=== PATIENT | female | born 1970 | race Hispanic/Latino ===

== ENCOUNTER 2019-09-08 01:52 | Emergency (ER) | payer SELFPAY ==
[2019-09-08 03:12] LABS: #Eosinphils 0.1 thou/uL (0.0-0.7); #Lymphocytes 0.7 thou/uL (1.20-3.40); #Monocytes 0.4 thou/uL (0.11-0.59); %Basophils 0.3 % (0.0-1.0); %Eosinophils 0.7 % (0.0-10.0); %Lymphocytes 6.5 % (21.0-51.0); %Monocytes 4.2 % (0.0-10.0); %Neutrophils 88.4 % (42.0-75.0); Hemoglobin 13.1 g/dL (12.0-16.0); Mean Corpuscular HGB CONC 34.5 g/dL (32.0-36.0); Mean Corpuscular Hemoglobin 32.1 pg (27.0-31.0); Mean Platelet Volume 7.9 fL (7.4-10.4); Platelet Count 198 thou/uL (130-400); RBC Distribution Width 11.8 % (11.5-14.5); Red Blood Cell (RBC) Count 4.09 mill/uL (4.20-5.40); White Blood Cell (WBC) Count 10.2 thou/uL (4.8-10.8)
[2019-09-08 03:20] LABS: BHCG - Serum Negative (NEGATIVE); Pregs Control Background? CLEAR/WHITE (CLR/WHITE); Pregs Control Bar Appear? YES (CONTROL BAR)
[2019-09-08] MEDS ORDERED: Lorazepam 2 MG/ML VIAL ONE (03:31)
[2019-09-08 03:47] LABS: ALT (SGPT) 32 U/L (8-55); AST (SGOT) 66 U/L (5-34); Albumin 3.5 g/dL (3.5-5.0); Alkaline Phosphatase 42 U/L (40-110); Anion Gap 12 mmol/L (10-20); BUN (Urea Nitrogen) 17 mg/dL (7.0-18.7); Bilirubin, Total 0.7 mg/dL (0.2-1.2); Calc. Creatinine Clearance 0 mL/min (70-130); Calcium 8.2 mg/dL (7.8-10.44); Carbon Dioxide 21 mmol/L (22-29); Chloride 104 mmol/L (98-107); Estimated GFR-MDRD 82; Globulin 2.5 g/dL (2.4-3.5); Glucose 143 mg/dL (70-105); Lipase 27 U/L (8-78); Potassium 4.3 mmol/L (3.5-5.1); Sodium 133 mmol/L (136-145)
--- NOTE | 2019-09-08 08:00 | CT ---
PRELIMINARY REPORT/[facility]/EMERGENCY AFTER HOURS PROCEDURE: PROCEDURE INFORMATION: Exam: CT Angiography Chest With Contrast Exam date and time: 09/08/2019 2:40 AM Clinical history: 48 years old, female; Abdominal pain; Generalized; Patient HX: F48 with pmhx of anx iety presents to ED with C/O chest pain, back pain and fall d/t dizziness tonight. PT states that she has had back pain and chest pain since yesterday. PT reports laying in bed this evening when she att empted to get up and became dizzy and fell and hit head. Negative loc. PT reports nausea but denies v omiting. PT denies edema, smoking HX, HX of HTN, HX of dm, and family heart HX. 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 PT was give asa and zofran en route. TECHNIQUE: Imaging protocol: Computed tomographic angiography of the chest with intravenous contrast. 3D rendering: MIP reconstructed images were created and reviewed. COMPARISON: No relevant prior studies available. FINDINGS: Pulmonary arteries: Adequate contrast enhancement of the pulmonary arteries. Aorta: No evidence of thoracic aortic dissection. Lungs: No evidence endobronchial lesion. No evidence of focal air space disease/consolidation. Pleural space: No evidence of pneumothorax. Heart: Heart appears within normal limits, no pericardial effusion. No evidence of filling defects in the cardiac chambers. Lymph nodes: Unremarkable. No enlarged lymph nodes. Bones/joints: Musculoskeletal structures appear intact. Soft tissues: Unremarkable. IMPRESSION: 1. No evidence of thoracic aortic dissection. 2. No evidence of pulmonary embolism. 3. No evidence of focal air space disease/consolidation. PROCEDURE INFORMATION: Exam: CT Angiography Abdomen With Contrast Exam date and time: 09/08/2019 2:40 AM Clinical history: 48 years old, female; Abdominal pain; Generalized; Patient HX: F48 with pmhx of anx iety presents to ED with C/O chest pain, back pain and fall d/t dizziness tonight. PT states that she has had back pain and chest pain since yesterday. PT reports laying in bed this evening when she att empted to get up and became dizzy and fell and hit head. Negative loc. PT reports nausea but denies v omiting. PT denies edema, smoking HX, HX of HTN, HX of dm, and family heart HX. 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 PT was give asa and zofran en route. TECHNIQUE: Imaging protocol: Computed tomographic angiography images of the abdomen with intravenous contrast ma terial. 3D rendering: MIP reconstructed images were created and reviewed. COMPARISON: No relevant prior studies available. FINDINGS: VASCULATURE: Aorta: No evidence of abdominal aortic dissection or aneurysm. Celiac trunk and mesenteric arteries: No occlusion or significant stenosis. Renal arteries: No occlusion or significant stenosis. ABDOMEN: Liver: Normal. No mass. Gallbladder and bile ducts: Normal. No calcified stones. No ductal dilation. Pancreas: Normal. No ductal dilation. Spleen: Normal. No splenomegaly. Adrenals: Normal. No mass. Kidneys and ureters: Normal. No hydronephrosis. Stomach and bowel: No evidence of small bowel obstruction. Mild - moderate amount retained stool mate rial throughout nondilated colon. Lymph nodes: Unremarkable. No enlarged lymph nodes. Intraperitoneal space: Unremarkable. No free air. No significant fluid collection. Bones/joints: Unremarkable. No acute fracture. No dislocation. Soft tissues: Unremarkable. IMPRESSION: 1. No evidence of abdominal aortic dissection or aneurysm. 2. Patent mesenteric, aortoiliac and renal vasculature. 3. No evidence of small bowel obstruction. Thank you for allowing us to participate in the care of your patient. Dictated and Authenticated by: Wendy Mahajan MD 09/08/2019 3:09 AM Central Time ([place] & [place]) FINAL REPORT CTA CHEST WITH IV CONTRAST AND 3D POSTPROCESSING CTA ABDOMEN WITH IV CONTRAST AND 3D POSTPROCESSING: IMPRESSION: I agree with the preliminary report given by Linda. POS: SANTO
--- NOTE | 2019-09-08 08:14 | RAD ---
SINGLE VIEW OF THE CHEST: COMPARISON: None. HISTORY: Chest pain. FINDINGS: Single view of the chest shows a normal sized cardiomediastinal silhouette. There is no evidence of c onsolidation, mass, or pleural effusion. The bones are unremarkable. IMPRESSION: No evidence of acute cardiopulmonary disease. POS: CET
[2019-09-08] MEDS ORDERED: Iopamidol-370 76% 500 ML 1 ML ONE (15:02)
== END 2019-09-08 04:30 | disposition home or self-care (01) ==
LOC: ERS 01:52
DX: R07.89 Other chest pain (principal); F41.9 Anxiety disorder, unspecified; Z79.899 Other long term (current) drug therapy
CPT/HCPCS: 36415; 71045; 71275; 72191; 74175; 80053; 83690; 84484; 84703; 85025; 93005; J2060

== ENCOUNTER 2021-12-16 09:03 | Outpatient (CLI) | payer BC | END 2021-12-16 09:04 | disposition home or self-care (01) | LOC: MRI 09:03 | PROVIDERS: ATTEND Anesthesiology | DX: M47.26 Other spondylosis with radiculopathy, lumbar region (principal) | CPT/HCPCS: 72148 ==

== ENCOUNTER 2022-09-22 21:01 | Emergency (ER) | payer BC ==
[2022-09-22] MEDS ORDERED: Ketorolac Tromethamine 30 MG/ML VIAL ONE (23:28)
[2022-09-22] MEDS ORDERED: FENTANYL 50 MCG/ML 1 ML VIAL ONE ×2 (23:28→23:29)
[2022-09-23] MEDS ORDERED: HYDROcodone/Acetaminophen 5/325 mg Tablet ONE (00:47)
== END 2022-09-23 00:55 | disposition home or self-care (01) ==
LOC: ERS 21:01
DX: M54.50 Low back pain, unspecified (principal)
CPT/HCPCS: 96374; 96375; J1885; J3010